=== PATIENT | male | born 2005 | race Asian ===

== ENCOUNTER 2025-02-23 03:01 | Emergency (ER) | payer OTHER, SELFPAY ==
[2025-02-23 03:05] VITALS: BP 131/82; PULSE 94; TEMP 36.9; O2SAT 98; BMI 19.7
[2025-02-23 03:14] VITALS: RESP 18
--- NOTE | 2025-02-23 03:45 | ED.GENADULT ---
HPI - General Adult General Chief complaint: Anxiety Stated complaint: dizzy, increased heart rate Time Seen by Provider: 02/23/25 03:19 Source: patient Mode of arrival: ambulatory Limitations: no limitations History of Present Illness HPI narrative: 19-year-old male presents the emergency department with palpitations for the past couple of hours intermittently, seem triggered by eating some dark chocolate. Has had these episodes previously. Reports that these have been worked up outpatient. Was told that caffeine was likely contributory. He does try to avoid caffeine but had some yesterday. No trauma or injury. Says he feels dizzy when he is having the palpitations episode. He says he had checked his heart rate and it was as high as 115. When he is having the palpitations, when he gets up things around, his legs feel slightly weak but symmetric, no syncope, shortness of breath or focal neurological changes. The episodes last for a minute her to hand tend to jack. He does not use a [employer] tracker watch, [employer] watch or other device to actually monitor is heart rate or rhythm. He has never had an echo, no underlying history of structural heart disease. Does not drink alcohol, denies drug use, THC ingestion or other stimulants. Did not try any interventions prior to coming to the ED. Heart rate in triage is 94, 80 at the time of the quickly performed EKG. Reports that his past medical history is benign, no major long-term health problems. It sounds like there was some basic blood work done in the clinic when he was 1st evaluated for these symptoms. Nonsmoker, no alcohol, no long-term medications, no allergies. ROS is notable for the cardiac and generalized symptoms as above, otherwise denies times 12 systems. Related Data Allergies Allergy/AdvReac Type Severity Reaction Status Date / Time No Known Drug Allergies Allergy Verified 02/23/25 03:11 [facility] Social History Smoking Status: Never smoker How often do you have a drink containing alcohol: never How often do you have six or more drinks on one occasion: Never AUDIT-C Alcohol total score: 0 Non-prescribed substance use: denies use Exam Const: Vital Signs, click to edit/add: Vital Signs - 24 hr 02/23/25 03:05 02/23/25 03:14 Temperature 98.4 F Pulse Rate [Right Pulse Oximeter] 94 Respiratory Rate 18 Blood Pressure [Ri ght Upper Arm] 131/82 Pulse Oximetry 98 Oxygen Delivery Me thod Room Air Documenting provider has reviewed patient's vital signs: yes Common normals: oriented x3 and alert General appearance: well kempt Other: Mildly anxious but redirectable. Good insight. No intoxication. HENMT: Common normals: normocephalic, moist oral mucous membranes, oropharynx normal and dentition normal Head and scalp: normocephalic Eye: Common normals: conjunctivae normal General eye: normal appearance of both eyes Conjunctiva: conjunctiva(e) normal Neck & C-Spine: Common normals: full ROM, no lymphadenopathy and thyroid normal General: normal visual inspection Thyroid: thyroid normal Chest: Common normals: inspection of chest normal Resp: Common normals: normal respiratory effort, no use of accessory muscles and clear to auscultation bilaterally Effort & inspection: able to speak in complete sentences Auscultation: clear to auscultation bilaterally Cardio: Common normals: regular rate, regular rhythm and S2 normal heart sound Rate: regular rate Rhythm: regular rhythm Heart sounds: S2 normal Other: Classic mid systolic click heard over both mitral and pulmonic valve areas. He has a very thin chest wall, and it does seem as though the mitral valve is mildly effective. I clearly do not hear any major regurgitation. No S4. GI: Common normals: Normal to inspection, nondistended, normoactive bowel sounds present, soft to palpation, non-tender, no hepatosplenomegaly and no masses Palpation: soft and no hepatosplenomegaly Extremity: Common normals: normal to inspection Neuro: Common normals: oriented x3, moves all extremities and no focal motor deficits Sensorium/orientation: alert Speech: speech normal Motor exam: no tremor noted Psych: Appearance: well kempt Attitude: engaged Memory/cognition: memory grossly intact Skin: Common normals: no rashes or lesions noted General skin exam: no rashes or lesions noted Course Course ED Course: Vitals noted be stable. Exam is suggestive of some mild mitral prolapse but no signs of arrhythmias. EKG is performed. This shows normal sinus rhythm with a rate of 80. Excellent R-wave progression, no significant ST or T-wave abnormalities. Normal intervals and axis. Patient counseled on findings. We discussed potentially investing in a fitness tracker since he does have these episodes a couple of times per month. I reassured him that they are not particularly dangerous and gave parameters for which heart rate to be concerned about. Other alarm symptoms like neurological changes, chest pain, severe shortness of breath would certainly warrant re-evaluation as well. I do not think that he needs an echo at this time as there are not any signs of significant cardiac dysfunction or exertional symptoms. We did discuss following up outpatient and discussing a trial of extended-release metoprolol or even better would be propranolol to reduce episodes. Counseled patient that the episodes are more likely to happen when he has not slept well and with certain foods. Red wine, dark chocolate, alcohol in general and caffeine would all be likely instigator is a, but the fact that he is just prone to these episodes needs to be remembered. Unfortunately, it will not be signed typically reproducible every time and he may not always get episodes triggered by the same series of events. Written instructions were provided. Conservative management recommended for now with outpatient follow-up to discuss beta-harshal therapy. He verbalizes understanding and agreement. Vital Signs Vital signs: Initial Vital Signs Temperature 98.4 F 02/23/25 03:05 Temperature Source Temporal Artery Scan 02/23/25 03:05 Pulse Rate 94 02/23/25 03:05 Blood Pressure 131/82 02/23/25 03:05 Blood Pressure Mean 98 02/23/25 03:05 Blood Pressure Position Sitting 02/23/25 03:05 Pulse Oximetry 98 02/23/25 03:05 Oxygen Delivery Method Room Air 02/23/25 03:05 Vital Signs Temperature 98.4 F 02/23/25 03:05 Pulse Rate 94 02/23/25 03:05 Blood Pressure 131/82 02/23/25 03:05 Pulse Oximetry 98 02/23/25 03:05 Oxygen Delivery Method Room Air 02/23/25 03:05 Temperature 98.4 F 02/23/25 03:05 Pulse Rate 94 02/23/25 03:05 Respiratory Rate 18 02/23/25 03:14 Blood Pressure 131/82 02/23/25 03:05 Pulse Oximetry 98 02/23/25 03:05 Oxygen Delivery Method Room Air 02/23/25 03:05 Discharge Plan Discharge Clinical Impression: Heart palpitations Patient Disposition: Home, Self-Care Condition: Improved Instructions: Heart Palpitations (DC) Additional Instructions: As we discussed, the triggering of those palpitations may not always be an exact science for you. Caffeine certainly can trigger them but there are chemical compounds in dark chocolate, red wine, other alcohols and even certain foods that her just is likely to trigger these episodes of palpitations. The palpitations themselves are not really dangerous unless your heart rate is consistently over 160 at rest or over 200 with exertion. Please do not be alarmed at 115-120. Consider investing in a smart watch to track your heart rate and to let you know if there is a dangerous arrhythmia when you feel like your heart is racing. When I listen to her heart, I do hear a little bit of a splitting of the S1 sound, this tends to be from a condition called mitral valve prolapse. I do not hear any mitral regurgitation which would be a more dangerous condition. Yours is the safer option. 1 in 6 people have this condition so it is very common in based on how your heart is functioning, there is nothing that needs to be done with this. It does however make you more prone to these episodes of palpitations. As we discussed, I would like for you to make a follow-up with a primary care provider in 1-2 weeks. Keep track of your symptoms on a calendar or written diary so that you can further discuss how long they last, how often they happen, how high your heart rate goes, etc.. You might consider going on a daily prevent her medication like extended-release propranolol. This can be used daily to prevent episodes or just as needed if you are in a spell where your having more of them. If you are sleeping less, stressed out, not eating ideally, you are more likely to get the episodes. From Emergency Room perspective, there is nothing that we need to do tonight for them as your heart is in a perfect rhythm and a heart rate of 80. Primary care doctor may consider doing additional testing to look air hemoglobin, thyroid or other tests if they feel this is necessary. Based on the sound of your heart, I would not recommend an echo which is an ultrasound of the heart that if he continued to have repeated episodes, that are not relieved by the medication, this could be considered also. These are all tests that are done by an outpatient doctor. You are fully cleared to participate in all activities, exercise and work duties. You are cleared to return to school today. Activity Level: No Restrictions Discharge Diet: Regular Stand Alone Forms: [employer] Info Instructions
== END 2025-02-23 04:01 | disposition home or self-care (01) ==
LOC: ED 03:54
PROVIDERS: Emergency Provider Family Medicine
DX: R00.2 Palpitations (principal)
CPT/HCPCS: 93005; 99283; 99284

== ENCOUNTER 2025-03-05 23:09 | Emergency (ER) | payer OTHER, SELFPAY ==
[2025-03-05 23:14] VITALS: BP 132/86; PULSE 78; RESP 16; TEMP 36.9; O2SAT 97; BMI 19.6
--- NOTE | 2025-03-06 00:22 | ED_ITS ---
HPI - General Adult General Chief complaint: Dizziness/Vertigo Stated complaint: Dizziness Time Seen by Provider: 03/06/25 00:09 History of Present Illness HPI narrative: Patient reports dizziness and a light headache starting around 22:30 tonight. Patient complains of lightheadedness when lying down, and some pain in their neck when turning their head this morning after waking up. 19-year-old young man presenting to the emergency department with concern sensation of lightheadedness and mild headache. Some soreness in his neck. Was particularly alarming tonight when trying to rest was somewhat of a pulsatile headache and a pulse that he noted in his mid abdomen. Apparently has been seeing healthcare through a local college, [employer]. Also seen here in this emergency department about 10 days ago for heart palpitations. Was unaware that chocolate could contain caffeine. Was suspected of possible mitral valve prolapse at that time. He does acknowledge an underlying history of anxiety. As a Mandaeism does not take substances avoiding caffeine or any other drugs. No alcohol. Background of being [facility] [employer] and is a refugee in this country. Related Data Allergies Allergy/AdvReac Type Severity Reaction Status Date / Time No Known Drug Allergies Allergy Verified 02/23/25 03:11 Review of Systems Status of ROS: Reports: 6 or more systems reviewed and unremarkable except as noted in History and below [facility] Social History Smoking Status: Never smoker Second hand tobacco smoke exposure: No How often do you have a drink containing alcohol: never How often do you have six or more drinks on one occasion: Never AUDIT-C Alcohol total score: 0 Non-prescribed substance use: denies use service: No Exam Narrative: Exam Narrative: Slim. Pleasant. Intermittent eye contact. Cranial nerves 2-12 intact. Extr aocular movements are smooth without nystagmus. TMs are clear. Head is atraumatic. Little tense slightly sore in the paracervical musculature. Strong and equal carotid upstroke. No bruits. Lungs are clear. Heart in regular rate and rhythm. Abdomen is flat soft with normal abdominal pulse. Extremities are well perfused without edema. Moving all extremities without difficulty. Const: Vital Signs, click to edit/add: Vital Signs - 24 hr 03/05/25 23:14 03/06/25 01:03 Temperature 98.5 F Pulse Rate [Right Pulse Oximeter] 78 Pulse Rate [orthos tatic lying] 70 Pulse Rate [orthos tatic standing] 80 Respiratory Rate 16 Blood Pressure [Ri ght Upper Arm] 132/86 Blood Pressure [or thostatic lying] 129/89 Blood Pressure [or thostatic sitting] 130/86 Blood Pressure [or thostatic standing ] 130/90 H Pulse Oximetry 97 Oxygen Delivery Me thod Room Air Documenting provider has reviewed patient's vital signs: yes Course Vital Signs Vital signs: Initial Vital Signs Temperature 98.5 F 03/05/25 23:14 Temperature Source Temporal Artery Scan 03/05/25 23:14 Pulse Rate 78 03/05/25 23:14 Respiratory Rate 16 03/05/25 23:14 Blood Pressure 132/86 03/05/25 23:14 Blood Pressure Mean 101 03/05/25 23:14 Blood Pressure Position Sitting 03/05/25 23:14 Pulse Oximetry 97 03/05/25 23:14 Oxygen Delivery Method Room Air 03/05/25 23:14 Vital Signs Temperature 98.5 F 03/05/25 23:14 Pulse Rate 78 03/05/25 23:14 Respiratory Rate 16 03/05/25 23:14 Blood Pressure 132/86 03/05/25 23:14 Pulse Oximetry 97 03/05/25 23:14 Oxygen Delivery Method Room Air 03/05/25 23:14 Temperature 98.5 F 03/05/25 23:14 Pulse Rate 70 03/06/25 01:03 Respiratory Rate 16 03/05/25 23:14 Blood Pressure 129/89 03/06/25 01:03 Pulse Oximetry 97 03/05/25 23:14 Oxygen Delivery Method Room Air 03/05/25 23:14 Medical Decision Making MDM Narrative Medical decision making narrative: I did review normal EKG from visit 10 days ago. Otherwise appears well. Mildly anxious. I do not see anything new here. No stroke-like symptoms otherwise. Overall reassuring physical exam. Discussed stressors in his life. Sounds like there has been some academic stress as well. See patient discharge plan for further discussion I am sure you have been through a lot. I think you are struggling right now with your anxiety. Try to get quality and regular sleep. Try to get in a little heart pumping exercise daily. Try to be up to see the morning sunlight. I am prescribing some hydroxyzine for you from [facility]. This can help you with some of these feelings you were mentioning. Medical Records Medical records reviewed: Yes I reviewed the patient's medical records Discharge Plan Discharge Clinical Impression: Pulsatile abdomen, Anxiety Patient Disposition: Home, Self-Care Condition: Stable Additional Instructions: I am sure you have been through a lot. I think you are struggling right now with your anxiety. Try to get quality and regular sleep. Try to get in a little heart pumping exercise daily. Try to be up to see the morning sunlight. I am prescribing some hydroxyzine for you from [facility]. This can help you with some of these feelings you were mentioning. Follow Up/Referrals: Provider,Not a Local [Non-Staff] - Stand Alone Forms: [employer] Info Instructions
[2025-03-06 01:03] VITALS: BP 129/89; BP 130/86; BP 130/90; PULSE 70; PULSE 76; PULSE 79
== END 2025-03-06 01:31 | disposition home or self-care (01) ==
PROVIDERS: Emergency Provider Family Medicine; PCP Registered Nurse
DX: F41.9 Anxiety disorder, unspecified (principal); R19.8 Other specified symptoms and signs involving the digestive system and abdomen
CPT/HCPCS: 99283; 99284

== ENCOUNTER 2025-05-02 14:35 | Emergency (ER) | payer OTHER, SELFPAY ==
[2025-05-02] VITALS (31 sets, daily range): BP systolic 109–153; BP diastolic 71–94; PULSE 71–129; RESP 12–21; TEMP 36.8; O2SAT 95–100; BMI 17.3
--- OUTSIDE RECORDS SUMMARY | 2025-05-02 14:37 | XMS_ITS | Clinical Summary ---
Author Organization [facility] Address [address] [place] [id number] Care Team Providers Care Blood Typer Name Role Phone Pcp, No Primary Care Provider Unavailabl e Allergies No known active allergies Medications sertraline 25 mg tabletIndicatio ns:TATIANNA (generalized anxiety disorder) Take 1 Tablet (25 mg) by mouth once daily in the morning. 30 Tablet 1 5 Active propranoloL 10 mg tabletIndicatio ns:TATIANNA (generalized anxiety disorder) Take 1 Tablet (10 mg) by mouth three times daily. Take up to 3 x per day as needed. 30 Tablet 1 5 Active FLUoxetine 10 mg capsuleIndicati ons:TATIANNA (generalized anxiety disorder) Take 1 Capsule (10 mg) by mouth once daily. 30 Capsule 1 5 04/30/20 25 Discontinu ed(*Med complete/R egimen complete/L evel of care change) Encounters Date Type Department Care Team Description 04/30/2025 8:30 AM CDT Ancillary Procedure [facility] [address] [place] [address] Arrived 04/30/2025 7:55 AM CDT Office Visit [facility] [address] [place] [address] Tony Bang MD Follow Up (Generalized abdominal pulsating, feels this is related to anxiety) 04/30/2025 Travel 04/28/2025 Travel 04/05/2025 Patient Outreach [facility] Management - Care Management Navigation/[facility] [address] [place] [id number] Susan Orta HRSN-Community Resource Navigation 03/19/2025 E-Visit [facility] [address] [facility] [address] Tony Bang MD Sleep Issue 03/12/2025 Orders Only [facility] Scanner 1 scan: (1-Ord) INCOMING RECORDS-LABS, [facility], 03/12/2025 03/11/2025 10:00 AM CDT Office Visit [facility] [address] [facility] [address] Tony Bang MD Headache (dizziness, lightheaded, pulsating feeling - worse when laying down ); Abdominal Pain (pulsating feeling/ shaking feeling- sitting down or laying down - about 2 months ) 03/11/2025 Travel 02/01/2025 Orders Only [facility] Scanner 1 scan: (1-Ord) [facility], MULTIPLE RESULTS, 02/01/2025 from Last 3 Months Social History Tobacco Use Types Packs/Day Years Used Date Smoking Tobacco: Never Smokeless Tobacco: Never Tobacco Cessation:Counseling Given: Not Answered Alcohol Use Standard Drinks/Week Comments Never 0 (1 standard drink = 0.6 oz pur e alcohol) PHQ-2 Answer Date Recorded PHQ-2 TOTAL SCORE 4 04/30/2025 Social Connections Answer Date Recorded Do you often feel lonely or isolated from those around you? 4 04/07/2025 Financial Resource Strain Answer Date R ecorded Difficulty of Paying Living Expenses Not on file 03/11/2025 Difficulty of Paying Living Expenses 3 03/11/2025 Food Insecurity Answer Date Recorded Do you worry your food will run out before you are able to buy more? 2 04/07/2025 Transportation Needs Answer Date Record ed Does lack of transportation keep you from medica l appointments? 1 04/07/2025 Does lack of transportation keep you from work, meetings or getting things that you need? 2 04/07/2025 Housing Stability Answer Date Recorded What is your housing situation today? 2 04/07/2025 Utilities Answer Date Recorded Do you have trouble paying f or utilities (for example, heat, electricity, water, phone)? 2 04/07/2025 Sex and Gender Information Value Date Recorded Sex Assigned at Not on file Legal Sex Male 2:13 PM CDT Gender Identity Not on file Sexual Orientation Not on file Obstetrics History Last Filed Vital Signs Vital Sign Reading Time Taken Comments Blood Pressure 118/78 04/30/2025 7:58 AM CDT Pulse 72 04/30/2025 7:58 AM CDT Temperature 37 C (98.6 F) 04/30/2025 7:58 AM CDT Respiratory Rate - - Oxygen Saturation 97% 03/11/2025 10: 15 AM CDT Inhaled Oxygen Concentration - - Weight 52.1 kg (114 lb 12.8 oz) 04/30/2025 7:58 AM CDT Height - - Body Mass Index - - Plan of Treatment Upcoming Encounters Date Type Department Care Team (Late st Contact Info) Description 05/21/2025 7:55 AM CDT Office Visit [facility] [address] [place] [address] Tony Bang MD [address] [place] [address] Health Maintenance Due Date Last Done Comments Tdap 2014 HIV for age 15-65 2018 HPV series for age 9-26 (1 - Male 3-dose series) 2018 BMI (ht and wt on same day) for age 18+ 2021 Hepatitis C screening for ag e 18-79 2021 Hepatitis B series for 19+ ( 1 of 3 - 19+ 3-dose series) 2022 Tetanus booster 2023 COVID-19 vaccine series ( - season) 2024 Influenza Vaccine (Season Ended) 2025 Depression screening for age 12+ 04/30/2026 04/30/2025, 03/11/2025 Pneumococcal series for age 6-49 Aged Out No longer eligible b ased on patient's age to complete this topic Procedures Procedure Name Priority Date/Time Associated Diagnosis Comments XR CHEST 2 VIEWS PA AND LATERAL Routine 04/30/2025 8:36 AM CDT SOB (shortness of breath) SCAN CORRESP-LABORATORY RESULTS 03/12/2025 12:00 AM CDT SCAN-LABORATORY REPORT 02/01/2025 12:00 AM CDT from Last 3 Months Results * XR CHEST 2 VIEWS PA AND LATERAL (04/30/2025 8:36 AM CDT) Anatomical Region Laterality Modality CHEST, THORAX, Lung, HEART Compu janel Radiography 04/30/2025 11:2 8 AM CDT Impressions 04/30/2025 11:28 AM CDT 1. No acute cardiopulmonary disease is seen. Dictated by: Jorge Blackwell MD @ 04/30/2025 11:28:38 (Electronically Signed) Narrative 04/30/2025 11:28 AM CDT For Patients: As a result of the Cures Act, medical imaging exams and procedure reports are released immediately into your electronic medical record. You may view this report before your referring provider. If you have questions, please contact your health care provider. INDICATION: Shortness of breath TECHNIQUE: Chest radiograph 2 views COMPARISON: None FINDINGS: Mediastinum: The mediastinum is normal in appearance. The heart silhouette is normal in size and morphology. Lung: Both lungs are unremarkable in appearance. No sign of pleural effusion seen. No pneumothorax is identified. Bone and Soft tissue: Unremarkable for age. Procedure Note Jorge Blackwell MD - 04/30/2025 For Patients: As a result of the Cures Act, medical imagingexams and procedure reports are released immediately into your electronicmedical record. You may view this report before your referring provider.If you have questions, please contact your health care provider. INDICATION: Shortness of breath TECHNIQUE: Chest radiograph 2 views COMPARISON: None FINDINGS: Mediastinum: The mediastinum is normal in appearance. The heart silhouetteis normal in size and morphology. Lung: Both lungs are unremarkable in appearance. No sign of pleuraleffusion seen. No pneumothorax is identified. Bone and Soft tissue: Unremarkable for age. IMPRESSION: 1. No acute cardiopulmonary disease is seen. Dictated by: Jorge Blackwell MD @ 04/30/2025 11:28:38 (Electronically Signed) Tony Barakat-Belle Bang MD GENERAL IMAGING Final Result * SCAN CORRESP-LABORATORY RESULTS (03/12/2025 12:00 AM CDT) us Scanner OTHER Final Result * SCAN-LABORATORY REPORT (02/01/2025 12:00 AM CDT) us Scanner OTHER Final Result from Last 3 Months Insurance [facility] PPO Care Teams Blood Typer Relationship Specialty Start Date End Date Pcp, No . PCP - General 03/11/25
--- NOTE | 2025-05-02 15:00 | ED.ARRPALP ---
HPI - Arrhythmia/Palpitations General Chief Complaint: Arrhythmia/Palpitations Stated Complaint: high heart rate, light headed Time Seen by Provider: 05/02/25 14:41 History of Present Illness HPI narrative: Patient is a 20-year-old gentleman who has chronic palpitations. He has been worked up extensively both here in the emergency room and at [facility]. Workup has been unremarkable. He has no chest pain but he does become short of breath when he develops his symptoms. He was seen in the [facility] yesterday evaluation was unremarkable. The asked him start propranolol all and sertraline. He has not started that yet. He comes in today stating his heart is racing. His pulse is actually 103 with sinus rhythm. Patient is extremely anxious. No other related symptoms. No chronic health issues. Related Data Home Medications ?Medication ?Instructions ?Recorded ?Confirmed propranolol 10 mg tablet 10 mg PO 3XD 05/02/25 05/02/25 sertraline 25 mg tablet 25 mg PO DAILY 05/02/25 05/02/25 Allergies Allergy/AdvReac Type Severity Reaction Status Date / Time No Known Drug Allergies Allergy Verified 02/23/25 03:11 Review of Systems Status of ROS: Reports: 10 or more systems reviewed and unremarkable except as noted in History and below [facility] Medical History Anxiety ?F41.9 - Anxiety disorder, unspecified (ICD-10) Social History Smoking Status: Never smoker Second hand tobacco smoke exposure: No How often do you have a drink containing alcohol: never How often do you have six or more drinks on one occasion: Never AUDIT-C Alcohol total score: 0 Non-prescribed substance use: denies use service: No Exam Narrative: Exam Narrative: EXAM GENERAL: Patient appears comfortable but anxious. EYES: No scleral icterus. ENT: Tympanic membranes and oropharynx normal. THYROID: no thyroid nodules or thyromegaly. LYMPH: No supraclavicular or cervical lymphadenopathy. SKIN: Visible skin seen during exam normal or with benign process only. EXT: No dependent lower extremity pedal edema. HEART: Regular rate and rhythm with no murmurs, rubs, or gallops. LUNGS: Clear to auscultation bilaterally with no crackles or wheezes. ABD: Soft, non tender, non distended. PSYCH: Good eye contact, speech is not pressured. Const: Vital Signs, click to edit/add: Vital Signs - 24 hr 05/02/25 14:42 Temperature 98.3 F Pulse Rate [Right Pulse Oximeter] 104 H Respiratory Rate 18 Blood Pressure [Ri ght Upper Arm] 134/87 Pulse Oximetry 97 Oxygen Delivery Me thod Room Air Course Course ED Course: Patient seen examined. We did have a nice conversation about need for further evaluation. I do think that the most reasonable thing to do is to have him wear is Zio patch. I do not believe further lab work is indicated. EKG is personally reviewed by me today. I do suspect his symptoms are due to anxiety and I did ask him to fill and start taking the sertraline and propranolol. He will return if symptoms worsen I will follow-up on his Zio patch through the clinic. Vital Signs Vital signs: Initial Vital Signs Temperature 98.3 F 05/02/25 14:42 Temperature Source Temporal Artery Scan 05/02/25 14:42 Pulse Rate 104 H 05/02/25 14:42 Respiratory Rate 18 05/02/25 14:42 Blood Pressure 134/87 05/02/25 14:42 Blood Pressure Mean 102 05/02/25 14:42 Blood Pressure Position Sitting 05/02/25 14:42 Pulse Oximetry 97 05/02/25 14:42 Oxygen Delivery Method Room Air 05/02/25 14:42 Vital Signs Temperature 98.3 F 05/02/25 14:42 Pulse Rate 104 H 05/02/25 14:42 Respiratory Rate 18 05/02/25 14:42 Blood Pressure 134/87 05/02/25 14:42 Pulse Oximetry 97 05/02/25 14:42 Oxygen Delivery Method Room Air 05/02/25 14:42 Temperature 98.3 F 05/02/25 14:42 Pulse Rate 104 H 05/02/25 14:42 Respiratory Rate 18 05/02/25 14:42 Blood Pressure 134/87 05/02/25 14:42 Pulse Oximetry 97 05/02/25 14:42 Oxygen Delivery Method Room Air 05/02/25 14:42 Discharge Plan Discharge Clinical Impression: Palpitations Patient Disposition: Home, Self-Care Condition: Stable Instructions: Heart Palpitations (ED) Additional Instructions: Where the Zio patch Take your medication as prescribed Follow-up based on Zio patch results. Activity Level: No Restrictions Discharge Diet: Regular Prescriptions: No Action propranolol 10 mg tablet 10 mg PO 3XD sertraline 25 mg tablet 25 mg PO DAILY Follow Up/Referrals: Tarah Draper APRN, AVIONICS SYSTEM ENGINEER [Primary Care Provider, Family Practice] Stand Alone Forms: [employer] Info Instructions
[2025-05-02 15:44] LABS: Basophils Absolute Auto 0.03 K/uL (0.00-0.30); Basophils Percent Auto 0.5 % (0.0-3.0); Eosinophils Absolute Auto 0.07 K/uL (0.00-0.50); Eosinophils Percent Auto 1.1 % (0.0-7.0); Hematocrit 47.9 % (37.0-53.0); Hemoglobin* 16.4 gm/dL (13.5-17.5); Immature Granulocytes Abs Auto 0.02 K/uL (0.00-0.30); Immature Granulocytes Pct Auto 0.3 %; Lymphocytes Percent Auto 46.3 % (20-44); Mean Corpuscular HGB Conc 34 gm/dL (32-36); Mean Corpuscular Hemoglobin 30 pg (26-34); Mean Corpuscular Volume 88 fL (80-100); Monocytes Percent Auto 5.9 % (0.0-11.0); Neutrophils Absolute Auto 2.87 K/uL (1.7-7.0); Neutrophils Percent Auto 45.9 % (42.0-72.0); Platelet Count* 221 K/uL (140-440); RDW Coefficient of Variation % 12.4 % (11.5-15.5); Red Blood Count 5.45 m/uL (4.30-5.90); White Blood Count* 6.26 K/uL (4.50-11.00)
[2025-05-02] MEDS: PROPRANOLOL 20 MG TABLET PO (15:46)
[2025-05-02 15:47] LABS: Slide Review Reflex No
[2025-05-02 15:52] LABS: Chloride* 101 mmol/L (96-114); Potassium* 3.6 mmol/L (3.6-5.1); Sodium* 137 mmol/L (135-149)
[2025-05-02 15:55] LABS: Anion Gap 10 mEq/L (7-15); Blood Urea Nitrogen* 15 mg/dL (5-24); Carbon Dioxide* 26 mmol/L (20-32); Creatinine* 0.9 mg/dL (0.5-1.5); Estimated Glomerular Filt Rate 124 ml/min
[2025-05-02 15:56] LABS: Calcium* 9.6 mg/dL (8.4-10.6); Glucose* 140 mg/dL (60-115)
[2025-05-02 16:08] LABS: Troponin I* < 0.01 ng/mL (0.01-0.04)
== END 2025-05-02 18:25 | disposition home or self-care (01) ==
LOC: ED 18:10
PROVIDERS: Internal Medicine; Emergency Provider Emergency Medicine; PCP Registered Nurse
DX: R00.2 Palpitations (principal); F41.9 Anxiety disorder, unspecified
CPT/HCPCS: 36415; 80048; 84443; 84484; 85025; 99283; 99284; A9270

== ENCOUNTER 2025-05-11 00:38 | Emergency (ER) | payer OTHER, SELFPAY ==
--- OUTSIDE RECORDS SUMMARY | 2025-05-11 00:40 | XMS_ITS | Clinical Summary ---
Author Organization [employer] [facility] Address [address] [place] [id number] Care Team Providers Care Candy Cutter Machine Name Role Phone Pcp, No Primary Care [...] Encounters Date Type Department Care Team Description 05/06/2025 Orders Only [facility] Scanner 1 scan: (1-Ord) INCOMING RECORDS-LABS, [facility], 05/06/2025 04/30/2025 8:30 AM CDT Ancillary Procedure [facility] [address] [place] [address] 04/30/2025 7:55 AM CDT Office Visit [facility] [address] [place] [address] Tony Bang MD Follow Up (Generalized abdominal pulsating, feels this is related to anxiety) 04/30/2025 Travel 04/28/2025 Travel 04/05/2025 Patient Outreach [facility] Care Management - Care Management Navigation/[facility] [address] [place] [address] [phone] [facility]-Community Resource Navigation 03/19/2025 E-Visit [facility] [address] [place] [address] Tony Bang MD Sleep Issue 03/12/2025 Orders Only [facility] Scanner 1 scan: (1-Ord) INCOMING RECORDS-LABS, [facility], 03/12/2025 03/11/2025 10:00 AM CDT Office Visit [facility] [address] [place] [address] Tony Bang MD Headache (dizziness, lightheaded, pulsating feeling - worse when laying down ); Abdominal Pain (pulsating feeling/ shaking feeling- sitting down or laying down - about 2 months ) 03/11/2025 Travel from Last 3 Months Social History Tobacco [...] Care Team (Late st Contact Info) Description 05/12/2025 11:15 AM CDT Office Visit [facility] [address] [place] [address] Tony Bang MD [address] [place] [address] 05/21/2025 7:55 AM CDT Office Visit [facility] [address] [place] [address] Tony Bang MD [address] [place] [address] Health Maintenance Due Date Last Done Comments Tetanus booster 2014 HIV for age 15-65 2018 HPV series for age 9-26 (1 - Male 3-dose series) 2018 BMI (ht and wt on same day) for age 18+ 2021 Hepatitis C screening for ag e 18-79 2021 Hepatitis B series for 19+ ( 1 of 3 - 19+ 3-dose series) 2022 COVID-19 vaccine series ( - season) 2024 Influenza Vaccine (#1) 2025 Depression screening for age 12+ 04/30/2026 04/30/2025, 03/11/2025 Pneumococcal series for age 6-49 Aged Out No longer eligible b ased on patient's age to complete this topic Procedures Procedure Name Priority Date/Time Associated Diagnosis Comments SCAN CORRESP-LABORATORY RESULTS 05/06/2025 12:00 AM CDT XR CHEST 2 VIEWS PA AND LATERAL Routine 04/30/2025 8:36 AM CDT SOB (shortness of breath) SCAN CORRESP-LABORATORY RESULTS 03/12/2025 12:00 AM CDT from Last 3 Months Results * SCAN CORRESP-LABORATORY RESULTS (05/06/2025 12:00 AM CDT) Only the most recent of2 resultswithin the time period is included. us Scanner OTHER Final Result * XR CHEST 2 VIEWS PA AND [...] Barakat-Belle Bang MD GENERAL IMAGING Final Result from Last 3 Months Insurance Care Teams Candy Cutter Machine Relationship Specialty Start Date End Date Pcp, No . PCP - General 03/11/25
[2025-05-11 00:41] VITALS: BP 119/78; PULSE 61; RESP 16; TEMP 36.7; O2SAT 97; BMI 18.8
[2025-05-11] MEDS: ACETAMINOPHEN 500 MG TABLET 1000 MG PO (01:23)
[2025-05-11] MEDS: KETOROLAC 10 MG TABLET PO (01:23)
--- NOTE | 2025-05-11 01:26 | ED.GENADULT ---
HPI - General Adult General Chief complaint: Headache/Migraine Stated complaint: headache Time Seen by Provider: 05/11/25 00:50 Source: patient Mode of arrival: ambulatory Limitations: no limitations History of Present Illness HPI narrative: 20-year-old male presents to the emergency department with upper neck and occipital area headache for the past 5 hours, intermittent, gradual onset. No trauma or injury. Not anticoagulated. Tried taking 200 mg of ibuprofen a few hours ago with no significant improvement in symptoms. Did not try Tylenol. Headache is pulsatile in nature but is not associated with any focal weakness. This is his 4th emergency department visit in 4 months for mild complaints. No fever. No recent illness symptoms. No weakness in the arms. Headache does not radiate. No vision changes. He is frustrated that he cannot sleep because of the headache. Did not try taking any gentle sleep aids. Past medical history is notable for palpitations. Multiple prior ED visits for this. Reports that his only home med is metoprolol 25 mg twice daily. Denies alcohol or illicit drug use. Nonsmoker. ROS is notable for the headache as described above, otherwise benign times 12 systems. Related Data Previous Rx's ?Medication ?Instructions ?Recorded metoprolol tartrate 25 mg tablet 25 mg PO BID #30 tabs 05/02/25 Allergies Allergy/AdvReac Type Severity Reaction Status Date / Time No Known Drug Allergies Allergy Verified 05/11/25 00:47 [facility] Medical History Anxiety ?F41.9 - Anxiety disorder, unspecified (ICD-10) Social History Smoking Status: Never smoker Second hand tobacco smoke exposure: No How often do you have a drink containing alcohol: never How often do you have six or more drinks on one occasion: Never AUDIT-C Alcohol total score: 0 Non-prescribed substance use: denies use service: No Exam Const: Vital Signs, click to edit/add: Vital Signs - 24 hr 05/11/25 00:41 Temperature 98.1 F Pulse Rate [Pulse Oximeter] 61 Respiratory Rate 16 Blood Pressure [Ri ght Upper Arm] 119/78 Pulse Oximetry 97 Oxygen Delivery Me thod Room Air Documenting provider has reviewed patient's vital signs: yes Common normals: no apparent distress and alert General appearance: well kempt Other: Anxious but redirectable. He does seem to assign more severity to his symptoms then we are Perceiving HENMT: Common normals: normocephalic, head/scalp atraumatic, moist oral mucous membranes and oropharynx normal Head and scalp: normocephalic and atraumatic Face and sinus: normal facial exam Mouth: oral and palatal mucosa normal Eye: Common normals: PERRL, EOMs intact bilaterally and conjunctivae normal General eye: normal appearance of both eyes Conjunctiva: conjunctiva(e) normal Pupil: PERRL Neck & C-Spine: Common normals: full ROM, no lymphadenopathy and no meningeal signs General: normal visual inspection Other: no meningeal signs. Paraspinal muscle tenderness of the upper cervical spine noted. No point bony tenderness. Normal range of motion. Chronic rounding of shoulders. Resp: Common normals: normal respiratory effort, no use of accessory muscles and clear to auscultation bilaterally Auscultation: clear to auscultation bilaterally Extremity: Common normals: normal to inspection and normal capillary refill Neuro: Common normals: CN's II-XII intact bilaterally and moves all extremities Sensorium/orientation: alert Meningeal signs: no meningeal signs Cranial nerves: CN normal except as noted Coordination/balance: tandem gait normal Speech: speech normal Gait (neuro): normal gait Motor exam: strength 5/5 throughout Coordination: Romberg test normal and tandem gait normal Psych: Appearance: well kempt Attitude: engaged Insight: fair Judgement: fair Skin: Common normals: no rashes or lesions noted General skin exam: no rashes or lesions noted Course Course ED Course: 20-year-old male with tension headache. No features of acute neurological change, no features of meningitis, seizure or other emergent condition. Counseled patient on thoughts and findings. Will give Tylenol 1000 mg p.o. x1, Toradol 10 mg p.o. x1. Encouraged on drinking fluids. Will give prescription for Flexeril 5-10 mg at bedtime p.r.n. if pain is severe and he cannot sleep and has maxed out the other 2 options. Written handout of home exercise plan is documented and given as well. Counseled patient on alarm symptoms that would typically warrant ER evaluation including seizures, loss of consciousness, traumatic headache, fevers, neck stiffness, etc.. We discussed proper home use of Tylenol and ibuprofen and proper adult dosing. Written instructions are provided. No indications for CT or further workup today. multiple prior blood tests reviewed. Vital Signs Vital signs: Initial Vital Signs Temperature 98.1 F 05/11/25 00:41 Temperature Source Temporal Artery Scan 05/11/25 00:41 Pulse Rate 61 05/11/25 00:41 Respiratory Rate 16 05/11/25 00:41 Blood Pressure 119/78 05/11/25 00:41 Blood Pressure Mean 91 05/11/25 00:41 Pulse Oximetry 97 05/11/25 00:41 Oxygen Delivery Method Room Air 05/11/25 00:41 Vital Signs Temperature 98.1 F 05/11/25 00:41 Pulse Rate 61 05/11/25 00:41 Respiratory Rate 16 05/11/25 00:41 Blood Pressure 119/78 05/11/25 00:41 Pulse Oximetry 97 05/11/25 00:41 Oxygen Delivery Method Room Air 05/11/25 00:41 Temperature 98.1 F 05/11/25 00:41 Pulse Rate 61 05/11/25 00:41 Respiratory Rate 16 05/11/25 00:41 Blood Pressure 119/78 05/11/25 00:41 Pulse Oximetry 97 05/11/25 00:41 Oxygen Delivery Method Room Air 05/11/25 00:41 Medications Administered Medications: Generic Name Dose Route Start Last Admin Trade Name Freq PRN Reason Stop Dose Admin Acetaminophen 1,000 mg 05/11/25 01:11 05/11/25 01:23 Acetaminophen 500 Mg Tablet PO 05/11/25 01:12 1,000 mg ONCE ONE Administration Ketorolac Tromethamine 10 mg 05/11/25 01:11 05/11/25 01:23 Ketorolac 10 Mg Tablet PO 05/11/25 01:12 10 mg ONCE ONE Administration Discharge Plan Discharge Clinical Impression: Acute tension headache Patient Disposition: Home, Self-Care Condition: Stable Instructions: Tension Headache (ED) Additional Instructions: as we discussed, your symptoms are consistent with a tension headache. There were no signs of meningitis, seizure or other emergent condition tonight. Your given Tylenol and Toradol which is an anti-inflammatory pain medicine similar to ibuprofen. I suspect that trying ibuprofen at home was not successful for you because you are not taking a proper dose for an adult. Proper dosing would be 3 tablets every 6 hours. Proper dosing of Tylenol is 1000 mg every 6 hours. Typically we see these types of headaches from chronic poor posture, shoulder rounding and use of electronics. Physical therapy would be significantly helpful to prevent these episodes. For many people, these can be recurrent. I will also recommend a muscle relaxant if your symptoms are more bothersome at nighttime. Please use the Tylenol and ibuprofen as first-line therapy. Chiropractic adjustment may be helpful for you as well. If you continue to have recurrent episodes not relieved by these recommendations, please make a follow-up appointment with your primary care provider to discuss additional options for treatment. some basic exercises are also enclosed you should start doing to help reduce her risk of these headaches which do tend to be recurrent. He should come to the emergency department if you have a high fever with neck stiffness, meaning over 100.4, focal stroke-like symptoms, headache associated with major trauma or injury, or headaches with recurrent vomiting. Continue taking Your medications as prescribed. Activity Level: No Restrictions Discharge Diet: Regular Prescriptions: No Action metoprolol tartrate 25 mg tablet 25 mg PO BID Qty: 30 0RF Follow Up/Referrals: Tarah Draper, HANDLE MAKER, CONTRACT COORDINATOR [Primary Care Provider, Family Practice] Stand Alone Forms: [employer] Info Instructions
== END 2025-05-11 01:42 | disposition home or self-care (01) ==
PROVIDERS: Emergency Provider Family Medicine; PCP Registered Nurse
DX: G44.209 Tension-type headache, unspecified, not intractable (principal)
CPT/HCPCS: 99283; A9270

== ENCOUNTER 2025-06-13 10:31 | Emergency (ER) | payer OTHER, SELFPAY ==
--- OUTSIDE RECORDS SUMMARY | 2025-06-13 10:33 | XMS_ITS | Clinical Summary ---
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 30 Tablet 1 5 Active pantoprazole (PROTONIX) 20 mg tablet Take 1 Tablet (20 mg) by mouth two times daily before meals. 5 Active metoprolol tartrate (LOPRESSOR) 25 mg tabletIndicatio ns:Palpitations Take 1 Tablet (25 mg) by mouth two times daily. 120 Tablet 5 Active metoprolol tartrate (LOPRESSOR) 25 mg tablet Take 25 mg by mouth two times daily. 5 05/19/20 25 Discontinu ed(Reorder (E-cancel not sent)) Encounters Date Type Department Care Team Description 05/18/2025 11:00 AM CDT Ancillary Procedure [address] [address] 05/18/2025 Travel 05/12/2025 11:15 AM CDT Office Visit [address] [address] Tony Bang MD Follow Up (ER - palpations SVT , dizziness - symptoms comes and go ) 05/12/2025 Travel 05/06/2025 Orders Only [facility] Scanner 1 scan: (1-Ord) INCOMING RECORDS-LABS, [facility], 05/06/2025 04/30/2025 8:30 AM CDT Ancillary Procedure [address] [place] [address] 04/30/2025 7:55 AM CDT Office Visit [facility] [address] [place] [address] Tony Bang MD Follow Up (Generalized abdominal pulsating, feels this is related to anxiety) 04/30/2025 Travel 04/28/2025 Travel 04/05/2025 Patient Outreach [facility] Care Management - Care Management Navigation/[facility] [address] [place] [id number] You[facility]yleenSusan [facility]-Community Resource Navigation 03/19/2025 E-Visit [facility] [address] [place] [address] Tony Bang MD Sleep Issue from Last 3 Months Social History Tobacco [...] Sign Reading Time Taken Comments Blood Pressure 115/77 05/12/2025 11:11 AM CDT Pulse 94 05/12/2025 11:11 AM CDT Temperature 37 C (98.6 F) 04/30/2025 7:58 AM CDT Respiratory Rate - - Oxygen Saturation 97% 05/12/2025 11:11 AM CDT Inhaled Oxygen Concentration - - Weight 51.7 kg (114 lb) 05/12/2025 11:11 AM CDT Height - - Body Mass Index - - Plan of Treatment Upcoming Encounters Date Type Department Care Team (Late st Contact Info) Description 06/16/2025 8:05 AM CDT Office Visit [facility] [address] [place] [address] Ken Kidd, DO [address] [facility] [address] [place] [address] Health Maintenance Due Date Last Done Comments [...] Procedure Name Priority Date/Time Associated Diagnosis Comments CT ANGIO HEAD AND NECK CAROTID Routine 05/18/2025 11:30 AM CDT Pulsatile tinnitus of both ears SCAN CORRESP-LABORATORY RESULTS 05/06/2025 12:00 AM CDT XR CHEST 2 VIEWS PA AND LATERAL Routine 04/30/2025 8:36 AM CDT SOB (shortness of breath) from Last 3 Months Results * CTA HEAD AND NECK CAROTID (05/18/2025 11:30 AM CDT) Anatomical Region Laterality Modality BRAIN, NECK Computed Tomogra phy 05/18/2025 3:49 PM CDT Addenda Addendum by Christopher Brandt MD on 05/18/2025 3:56 PM CDT For Patients: As a result of the Cures Act, medical imaging exams and procedure reports are released immediately into your electronic medical record. You may view this report before your referring provider. If you have questions, please contact your health care provider. CT ANGIOGRAM HEAD DATE: 05/18/2025 CLINICAL HISTORY: Patient with pulsatile tinnitus. TECHNIQUE: Standard helical CT image acquisition through the intracranial circulation following intravenous administration of contrast material with bolus tracking. 2D and 3D MIP images for post-processing were performed and interpreted on an independent workstation and 3D images were permanently archived. COMPARISON: CT same day. FINDINGS: There is no abnormal vascularity at the skull base. There is no proximal intracranial large vessel occlusion. There is no intracranial aneurysm. The right internal carotid artery is normal. The right middle cerebral artery and its branches are normal. The right anterior cerebral artery and its branches are normal. The left internal carotid artery is normal. The left middle cerebral artery and its branches are normal. The left anterior cerebral artery and its branches are normal. The anterior communicating artery is well visualized and appears normal. The right vertebral artery and PICA are normal. The left vertebral artery and PICA are normal. The left vertebral artery is dominant. The basilar artery is patent and appears normal. The right posterior cerebral artery is normal. The left posterior cerebral artery is normal. The visualized venous structures are patent. IMPRESSION: Patent proximal intracranial vasculature without intracranial aneurysms or abnormal vascularity at the skull base to explain the patient`s pulsatile tinnitus. However, if the patient experiences persistent unilateral pulsatile tinnitus, then definitive evaluation with a diagnostic catheter angiogram should be performed. Arrangements for this to be performed by [facility]`s Neurointerventional team can be made by calling . Christopher Brandt M.D. Neurointerventional Radiologist [facility] [place] Pager: Office/Referrals: [facility]: [email or web address] Please note that all CT scans at this facility use dose modulation, iterative reconstruction, and/or weight-based dosing when appropriate to reduce radiation dose to as low as reasonably achievable. Dictated by: Christopher Brandt MD @ 05/18/2025 15:56:18 (Electronically Signed) Addendum by Christopher Brandt MD on 05/18/2025 3:54 PM CDT For Patients: As a result of the Cures Act, medical imaging exams and procedure reports are released immediately into your electronic medical record. You may view this report before your referring provider. If you have questions, please contact your health care provider. CT ANGIOGRAM NECK DATE: 05/18/2025 CLINICAL HISTORY: Patient with pulsatile tinnitus. TECHNIQUE: Standard helical CT image acquisition of the neck up to the skull base after bolus intravenous contrast enhancement. 2D and 3D MIP images for post-processing were performed and interpreted on an independent workstation and 3D images were permanently archived. COMPARISON: CT same day. FINDINGS: The origins of the great vessels from the aortic arch are patent. The origin of the right vertebral artery is patent. The origin of the left vertebral artery is patent. The common carotid arteries are patent. There is no stenosis at the origin of the right internal carotid artery. There is no stenosis at the origin of the left internal carotid artery. The rest of the cervical segments of the internal carotid arteries are patent up to the skull base. The vertebral arteries are codominant. The cervical segments of the vertebral arteries are patent up to the skull base. The visualized lung apices are unremarkable. The thyroid gland is unremarkable. The soft tissues of the neck are unremarkable. There are degenerative changes in the cervical spine. IMPRESSION: Patent cervical vasculature. Please note that all CT scans at this facility use dose modulation, iterative reconstruction, and/or weight-based dosing when appropriate to reduce radiation dose to as low as reasonably achievable. Dictated by: Christopher Brandt MD @ 05/18/2025 15:54:49 (Electronically Signed) Impressions 05/18/2025 3:[address]T Normal head CT. Please note that all CT scans at this facility use dose modulation, iterative reconstruction, and/or weight-based dosing when appropriate to reduce radiation dose to as low as reasonably achievable. Dictated by: Christopher Brandt MD @ 05/18/2025 15:49:06 (Electronically Signed) Narrative 05/18/2025 3:49 PM CDT For Patients: As a result of the Cures Act, medical imaging exams and procedure reports are released immediately into your electronic medical record. You may view this report before your referring provider. If you have questions, please contact your health care provider. CT HEAD DATE: 05/18/2025 CLINICAL HISTORY: Patient with pulsatile tinnitus. TECHNIQUE: Standard CT scanning of the head was performed. COMPARISON: None. FINDINGS: There is no intracranial hemorrhage. The agarwal matter-white matter differentiation is intact. The size of the ventricular system is normal for age. There is no mass effect or midline shift. The calvarium is unremarkable. The orbits are unremarkable. The paranasal sinuses are unremarkable. The mastoid air cells are unremarkable. The soft tissues are unremarkable. Procedure Note Christopher Brandt MD - 05/18/2025 For Patients: As a result of the Cures Act, medical imagingexams and procedure reports are released immediately into your electronicmedical record. You may view this report before your referring provider.If you have questions, please contact your health care provider. CT HEAD DATE: 05/18/2025 CLINICAL HISTORY: Patient with pulsatile tinnitus. TECHNIQUE: Standard CT scanning of the head was performed. COMPARISON: None. FINDINGS: There is no intracranial hemorrhage. The agarwal matter-white matter differentiation is intact. The size of the ventricular system is normal for age. There is no mass effect or midline shift. The calvarium is unremarkable. The orbits are unremarkable. The paranasal sinuses are unremarkable. The mastoid air cells are unremarkable. The soft tissues are unremarkable. IMPRESSION: Normal head CT. Please note that all CT scans at this facility use dose modulation,iterative reconstruction, and/or weight-based dosing when appropriate toreduce radiation dose to as low as reasonably achievable. Dictated by: Christopher Brandt MD @ 05/18/2025 15:49:06 (Electronically Signed) Tony Bang MD CT Edited Result - Final * SCAN CORRESP-LABORATORY RESULTS (05/06/2025 12:00 AM CDT) us Scanner OTHER Final Result * XR [...] MD @ 04/30/2025 11:28:38 (Electronically Signed) Tony Bang MD GENERAL IMAGING Final Result from Last 3 Months Insurance Care Teams Mold Finisher Relationship Specialty Start Date End Date Pcp, No . PCP - General 03/11/25
[2025-06-13 10:38] VITALS: BP 120/72; PULSE 76; RESP 18; TEMP 36.9; O2SAT 98; BMI 18.1
--- NOTE | 2025-06-13 11:00 | ED.GENADULT ---
HPI - General Adult General Chief complaint: Dizziness/Vertigo Stated complaint: lightheaded/dizziness Time Seen by Provider: 06/13/25 10:46 Source: patient Mode of arrival: ambulatory Limitations: no limitations History of Present Illness HPI narrative: 20-year-old male presenting today with multiple concerns. Patient states that he gets episodes of dizziness daily for the last 5 months. He states that for 1-3 hours every day he feels lightheaded, denies of vertigo denies nausea or vomiting. States that in the last month he has lost 2-3 kilos, but tells me that he has been eating and drinking normally. Tells me that he sleeps well at night. He is also concerned because he often feels a tightness in the back of his head, palpitations which she has had a thorough workup, pulsatile sensation in his abdomen and a pulsatile sensation in his head. He also states that he has a hard time concentrating. He tells me that he feels sad and has had anxiety and depression in the past. He states that the sadness is not the same as depression and that he does not feel that he has active depression or anxiety at this time. Patient is currently on summer break. He states he has not going to work in a month because he does not feel well. He tells me he has been worked up through this ER and his clinic thoroughly for his issues in the last 5 months. He tells me he has had multiple episodes of blood work and a head CT in the past without any acute findings. I ask him what he would like to have done today and he just says that he wants me to make him feel better. He denies diarrhea, trouble with urination. He denies pain in the chest or abdomen. He denies feeling short of breath. Related Data Home Medications ?Medication ?Instructions ?Recorded ?Confirmed sertraline 25 mg tablet 25 mg PO DAILY 06/13/25 06/13/25 Previous Rx's ?Medication ?Instructions ?Recorded metoprolol tartrate 25 mg tablet 25 mg PO BID #30 tabs 05/02/25 Allergies Allergy/AdvReac Type Severity Reaction Status Date / Time No Known Drug Allergies Allergy Verified 06/13/25 10:42 Review of Systems Status of ROS: Reports: 10 or more systems reviewed and unremarkable except as noted in History and below [facility] Medical History Anxiety ?F41.9 - Anxiety disorder, unspecified (ICD-10) Social History Smoking Status: Never smoker Do you use any of these nicotine containing products: None Second hand tobacco smoke exposure: No How often do you have a drink containing alcohol: never How often do you have six or more drinks on one occasion: Never AUDIT-C Alcohol total score: 0 Non-prescribed substance use: denies use service: No Exam Narrative: Exam Narrative: Thin, well-developed patient in no acute distress. Alert and oriented x3. Answers questions appropriately. Mood and affect are appropriate. Thoughts are goal oriented. No tangential or magical thinking noted. Patient speaks in full sentences without needing to catch his breath. HEENT: Normocephalic atraumatic. Pupils are equally round reactive to light. Extraocular muscles are intact. Conjunctivae are moist without any icterus noted. Moist mucous membranes. Posterior pharynx is normal. Neck is soft without any lymphadenopathy or thyromegaly. No masses are appreciated. Cardiovascular: Heart is regular rate and rhythm S1 and S2 are present without any murmurs. Lungs: Clear to auscultation bilaterally no wheezes rhonchi or rales are appreciated. Patient takes deep breaths without any discomfort. Abdomen: Soft and nontender nondistended with normal bowel sounds. No guarding or rebound. Extremities: Bilateral lower extremities are without edema. Skin: Well perfused without any obvious rashes. Const: Vital Signs, click to edit/add: Vital Signs - 24 hr 06/13/25 10:38 06/13/25 12:21 Temperature 98.4 F Pulse Rate [Right Pulse Oximeter] 76 58 L Respiratory Rate 18 18 Blood Pressure [Ri ght Upper Arm] 120/72 120/82 Pulse Oximetry 98 98 Oxygen Delivery Me thod Room Air Room Air Course Course ED Course: Last time patient had blood work in our ER was approximately 2 months ago. Did go ahead and repeat some blood work to make sure there was no acute changes. His last EKG here was a month ago and showed normal sinus rhythm with a pulse of 81. I do not have any imaging available to me today but the patient assures me he has had a normal head CT in the past. Given his age, I do not want a repeat this at this time as I believe the risks will outweigh the benefits. Blood work was entirely normal today. Vital Signs Vital signs: Initial Vital Signs Temperature 98.4 F 06/13/25 10:38 Temperature Source Temporal Artery Scan 06/13/25 10:38 Pulse Rate 76 06/13/25 10:38 Pulse Rhythm Regular 06/13/25 10:38 Pulse Strength 3+ Normal 06/13/25 10:38 Respiratory Rate 18 06/13/25 10:38 Blood Pressure 120/72 06/13/25 10:38 Blood Pressure Mean 88 06/13/25 10:38 Blood Pressure Position Sitting 06/13/25 10:38 Pulse Oximetry 98 06/13/25 10:38 Oxygen Delivery Method Room Air 06/13/25 10:38 Vital Signs Temperature 98.4 F 06/13/25 10:38 Pulse Rate 76 06/13/25 10:38 Respiratory Rate 18 06/13/25 10:38 Blood Pressure 120/72 06/13/25 10:38 Pulse Oximetry 98 06/13/25 10:38 Oxygen Delivery Method Room Air 06/13/25 10:38 Temperature 98.4 F 06/13/25 10:38 Pulse Rate 58 L 06/13/25 12:21 Respiratory Rate 18 06/13/25 12:21 Blood Pressure 120/82 06/13/25 12:21 Pulse Oximetry 98 06/13/25 12:21 Oxygen Delivery Method Room Air 06/13/25 12:21 Medical Decision Making MDM Narrative Medical decision making narrative: 20-year-old male with recurrent feelings of lightheadedness. I do recommend patient follow-up with a neurologist at this time. Lab Data Lab results reviewed: Yes I reviewed the patient's lab results Labs: Lab Results 06/13/25 06/13/25 Range/Units 11:00 11:15 WBC 6.14 (4.50-11.00) K/uL RBC 5.00 (4.30-5.90) m/uL Hgb 15.2 (13.5-17.5) gm/dL Hct 45.1 (37.0-53.0) % MCV 90 (80-100) fL MCH 30 (26-34) pg MCHC 34 (32-36) gm/dL RDW Coeff of [place] 12.6 (11.5-15.5) % Plt Count 207 (140-440) K/uL Neut % (Auto) 45.7 (42.0-72.0) % Lymph % (Auto) 43.5 (20-44) % [place] % (Auto) 7.5 (0.0-11.0) % Eos % (Auto) 2.4 (0.0-7.0) % Baso % (Auto) 0.7 (0.0-3.0) % Neut # (Auto) 2.81 (1.7-7.0) K/uL Lymph # (Auto) 2.67 (0.90-2.90) K/uL [place] # (Auto) 0.50 (0.00-0.90) K/UL Eos # (Auto) 0.15 (0.00-0.50) K/uL Baso # (Auto) 0.04 (0.00-0.30) K/uL Abs Immat Gran (auto) 0.01 (0.00-0.30) K/uL Imm/Tot Granulo (auto) 0.2 % Sodium 139 (135-149) mmol/L Potassium 4.3 (3.6-5.1) mmol/L Chloride 105 (96-114) mmol/L Carbon Dioxide 26 (20-32) mmol/L Anion Gap 8 (7-15) mEq/L BUN 9 (5-24) mg/dL Creatinine 0.9 (0.5-1.5) mg/dL Estimated Creat Clear 90.03 Estimated GFR 124 ml/min Glucose 89 (60-115) mg/dL Lactate 1.4 (0.5-1.9) mmol/L Calcium 9.6 (8.4-10.6) mg/dL Magnesium 2.2 (1.5-2.6) mg/dL Total Bilirubin 0.4 (0.1-1.5) mg/dL Direct Bilirubin 0.3 (0.0-0.5) mg/dL AST 33 (12-35) U/L ALT 16 (4-50) U/L Alkaline Phosphatase 54 (40-150) U/L C-Reactive Protein < 0.5 L (0.5-1.0) mg/dL Total Protein 8.0 (6.0-8.3) g/dL Albumin 4.7 (3.3-5.0) g/dL TSH 2.330 (0.270-4.20) uIU/mL Urine Opiates Screen Negative (Negative) Ur Oxycodone Screen Negative (Negative) Urine Methadone Screen Negative (Negative) Ur Barbiturates Screen Negative (Negative) U Tricyclic Antidepress Negative (Negative) Ur Phencyclidine Scrn Negative (Negative) Ur Amphetamines Screen Negative (Negative) U Methamphetamines Scrn Negative (Negative) U Benzodiazepines Scrn Negative (Negative) Urine Cocaine Screen Negative (Negative) U Marijuana (THC) Screen Negative (Negative) Ur Drug Screen Comment See Note Monoscreen Negative (Negative) Discharge Plan Discharge Clinical Impression: Light-headed Patient Disposition: Home, Self-Care Condition: Stable Additional Instructions: Your blood work was entirely normal today. You should follow-up with your primary care provider this week and proceed with a neurology appointment. Prescriptions: No Action metoprolol tartrate 25 mg tablet 25 mg PO BID Qty: 30 0RF sertraline 25 mg tablet 25 mg PO DAILY Follow Up/Referrals: Tarah Draper APRN, [employer] [Primary Care Provider, Family Practice] Stand Alone Forms: Postinith Info Instructions
[2025-06-13 11:23] LABS: Lactate* 1.4 mmol/L (0.5-1.9)
[2025-06-13 11:27] LABS: Hematocrit 45.1 % (37.0-53.0); Hemoglobin* 15.2 gm/dL (13.5-17.5); Immature Granulocytes Abs Auto 0.01 K/uL (0.00-0.30); Immature Granulocytes Pct Auto 0.2 %; Lymphocytes Absolute Auto 2.67 K/uL (0.90-2.90); Mean Corpuscular HGB Conc 34 gm/dL (32-36); Mean Corpuscular Hemoglobin 30 pg (26-34); Mean Corpuscular Volume 90 fL (80-100); RDW Coefficient of Variation % 12.6 % (11.5-15.5); Red Blood Count 5.00 m/uL (4.30-5.90); White Blood Count* 6.14 K/uL (4.50-11.00)
[2025-06-13 11:29] LABS: Slide Review Reflex No
[2025-06-13 11:38] LABS: Mono Screen* Negative (Negative)
[2025-06-13 11:39] LABS: Cannabinoid Screen Urine Negative (Negative); Methamphetamines Screen Urine Negative (Negative); Tricyclic Antidepressant Urine Negative (Negative)
[2025-06-13 11:58] LABS: Albumin* 4.7 g/dL (3.3-5.0); Chloride* 105 mmol/L (96-114); Potassium* 4.3 mmol/L (3.6-5.1); Sodium* 139 mmol/L (135-149)
[2025-06-13 12:01] LABS: Alanine Aminotransferase* 16 U/L (4-50); Alkaline Phosphatase* 54 U/L (40-150); Anion Gap 8 mEq/L (7-15); Aspartate Amino Transferase* 33 U/L (12-35); Bilirubin Direct* 0.3 mg/dL (0.0-0.5); Bilirubin Total* 0.4 mg/dL (0.1-1.5); Blood Urea Nitrogen* 9 mg/dL (5-24); Calcium* 9.6 mg/dL (8.4-10.6); Carbon Dioxide* 26 mmol/L (20-32); Creatinine* 0.9 mg/dL (0.5-1.5); Est. Creatinine Clearance* 90.03; Estimated Glomerular Filt Rate 124 ml/min; Glucose* 89 mg/dL (60-115); Total Protein* 8.0 g/dL (6.0-8.3)
[2025-06-13 12:21] VITALS: BP 120/82; PULSE 58; RESP 18; O2SAT 98
[2025-06-13 13:14] VITALS: BP 110/99; PULSE 61; RESP 18; TEMP 36.7
== END 2025-06-13 13:15 | disposition home or self-care (01) ==
PROVIDERS: Emergency Provider Family Medicine; PCP Registered Nurse
DX: R42 Dizziness and giddiness (principal)
CPT/HCPCS: 36415; 80048; 80076; 80306; 83605; 83735; 84443; 85025; 86140; 86308; 99283; 99284